=== PATIENT | male | born 1970 | race African-American/Black ===

== ENCOUNTER 2022-10-02 00:22 | Emergency (ER) | payer SELFPAY ==
[2022-10-02] MEDS ORDERED: HYDROmorphone 0.5 MG/0.5 ML SYRINGE ONE (00:53)
[2022-10-02] MEDS ORDERED: Ondansetron PF 4 MG/2 ML Vial ONE (00:53)
[2022-10-02] MEDS ORDERED: Ketamine 50 MG/ML (10ML VIAL) ONE (00:53)
[2022-10-02] MEDS ORDERED: Midazolam HCl 2 mg/2 ml Vial ONE (00:53)
[2022-10-02 01:25] LABS: #Basophils 0.1 10x3/uL (0.0-0.2); #Eosinphils 0.4 10x3/uL (0.0-0.5); #Monocytes 0.4 10x3/uL (0.0-1.1); %Eosinophils 5.2 % (0.0-6.0); %Lymphocytes 15.2 % (18.0-47.0); %Monocytes 5.8 % (0.0-10.0); %Neutrophils 71.4 % (40.0-75.0); Hemoglobin 13.7 g/dL (13.5-17.5); Mean Corpuscular HGB CONC 33.4 g/dL (32.0-36.0); Mean Corpuscular Hemoglobin 29.5 pg (27.0-33.0); Mean Corpuscular Volume 88.2 fl (81.2-95.1); Mean Platelet Volume 10.3 fl (7.4-10.4); Platelet Count 257 10x3/uL (150-450); Red Blood Cell (RBC) Count 4.65 10x6/uL (4.32-5.72); White Blood Cell (WBC) Count 6.9 10x3/uL (3.5-10.5)
[2022-10-02 01:30] LABS: Anion Gap 14 mmol/L (10-20); BUN (Urea Nitrogen) 20 mg/dL (8.9-20.6); Calc. Creatinine Clearance 0 mL/min (70-130); Calcium 9.5 mg/dL (7.8-10.44); Carbon Dioxide 19 mmol/L (22-29); Chloride 108 mmol/L (98-107); Estimated GFR 65; Glucose 148 mg/dL (70-105); Potassium 4.2 mmol/L (3.5-5.1); Sodium 137 mmol/L (136-145)
== END 2022-10-02 03:11 | disposition home or self-care (01) ==
LOC: CSHERS 00:22
DX: S43.014A Anterior dislocation of right humerus, initial encounter (principal); X50.0XXA Overexertion from strenuous movement or load, initial encounter
CPT/HCPCS: 23650; 80048; 85025; 96374; 96375; 99152; 99153; J1170; J2250; J2405

== ENCOUNTER 2022-10-09 12:06 | Emergency (ER) | payer SELFPAY ==
[2022-10-09] MEDS ORDERED: HYDROcodone/Acetaminophen 5/325 mg Tablet ONE (13:32)
[2022-10-09] MEDS ORDERED: PROPOFOL 20 ML ONE (14:33)
== END 2022-10-09 16:38 | disposition home or self-care (01) ==
LOC: CSHERS 12:06
DX: S43.004A Unspecified dislocation of right shoulder joint, initial encounter (principal); I10 Essential (primary) hypertension; X50.1XXA Overexertion from prolonged static or awkward postures, initial encounter
CPT/HCPCS: 23650; 99152; J2704

== ENCOUNTER 2022-10-29 14:49 | Emergency (ER) | payer SELFPAY ==
[2022-10-29] MEDS ORDERED: Ketorolac Tromethamine 30 MG/ML VIAL ONE (16:35)
[2022-10-29] MEDS ORDERED: Fentanyl 100 MCG/2 ML VIAL ONE (16:37)
[2022-10-29] MEDS ORDERED: PROPOFOL 20 ML ONE (18:30)
== END 2022-10-29 19:57 | disposition left against medical advice (07) ==
LOC: CSHERS 14:49
DX: S43.004A Unspecified dislocation of right shoulder joint, initial encounter (principal); I10 Essential (primary) hypertension; X58.XXXA Exposure to other specified factors, initial encounter
CPT/HCPCS: 96374; 96375; 99152; J1885; J2704; J3010